=== PATIENT | male | born 1970 | race Caucasian/White ===

== ENCOUNTER 2017-12-28 19:27 | Emergency (ER) | payer OTHER ==
[~2017-12-28] VITALS: Ht 177.8 cm; Wt 83.9 kg
[~2017-12-28 19:27] MED LIST: Crutch1 EACH MISC; IBUP800 PO; Norco 5-325 Ta1 EACH PO
[2017-12-28] MEDS ORDERED: KETO10 PO (20:04)
[2017-12-28] MEDS ORDERED: Norco 5-325 Ta1 EACH PO (20:12)
== END 2017-12-28 20:37 | disposition home or self-care (01) ==
LOC: ER 19:27
DX: M19.071 Primary osteoarthritis, right ankle and foot (principal)
CPT/HCPCS: 73630; 99283

== ENCOUNTER 2018-01-31 16:53 | Emergency (ER) | payer OTHER ==
[~2018-01-31] VITALS: Ht 177.8 cm; Wt 83.9 kg
[~2018-01-31 16:53] MED LIST changes: +KETO10 PO
== END 2018-01-31 18:30 | disposition home or self-care (01) ==
LOC: ER 16:53
DX: S00.83XA Contusion of other part of head, initial encounter (principal); Y04.8XXA Assault by other bodily force, initial encounter
CPT/HCPCS: 70450; 72072; 72125; 99285-25